=== PATIENT | female | born 1990 | race Caucasian/White ===

== ENCOUNTER 2020-01-04 03:29 | Emergency (ER) | payer MEDICAID ==
[~2020-01-04] VITALS: Ht 162.6 cm; Wt 47.7 kg
[2020-01-04] MEDS ORDERED: ketorolac trometh inj. 60 MG/2 ML VIAL IM ONE (04:00)
[2020-01-04] MEDS ORDERED: LIDOcaine 5% patch TP ONE (04:00)
[2020-01-04] MEDS ORDERED: acetaminophen 325mg tablet PO ONE (04:00)
[2020-01-04 04:25] VITALS: BP 112/78
== END 2020-01-04 04:30 | disposition home or self-care (01) ==
LOC: ER 03:30
DX: G89.29 Other chronic pain (principal); M54.5 Low back pain; Z88.8 Allergy status to other drugs, medicaments and biological substances
CPT/HCPCS: 96372; 99284; J1885